=== PATIENT | female | born 1980 | race African-American/Black ===

== ENCOUNTER 2023-07-21 22:35 | Emergency (ER) | payer SELFPAY ==
[~2023-07-21] VITALS: Ht 157.5 cm; Wt 75.0 kg
[2023-07-21 22:39] VITALS: TEMP 98.6; O2SAT 100
[2023-07-22 02:30] VITALS: BP 142/94; PULSE 86; RESP 16
[2023-07-22] MEDS ORDERED: HYDROCODONE/ACETAMINOPHEN 5/325MG TABLET PO NR (02:30)
[2023-07-22 03:48] LABS: BASOPHILS % 0.1 % (0.0-2.0); EOSINOPHILS % 0.9 % (0.0-5.0); HEMATOCRIT. 33.8 % (36.0-48.0); HEMOGLOBIN. 11.7 g/dL (12.0-16.0); LYMPHOCYTES % 9.8 % (20.0-50.0); MEAN CORPUSCULAR HEMOGLOBIN 32.1 pg (28.0-32.0); MEAN CORPUSCULAR HGB CONC 34.5 g/dL (31.0-37.0); MEAN CORPUSCULAR VOLUME 93.1 fL (81.0-99.0); MEAN PLATELET VOLUME 9.5 fl (7.4-10.4); NEUTROPHILS % 81.2 % (40.0-76.0); PLATELET 234 x1000/uL (130-400); RED BLOOD CELL COUNT 3.63 mill/uL (4.2-5.4); RED CELL DISTRIBUTION WIDTH 12.4 % (11.6-14.6); WHITE BLOOD COUNT 8.5 x1000/uL (4.5-11.0)
[2023-07-22 04:11] LABS: ALANINE AMINOTRANSFERASE 86 IU/L (10-49); ALBUMIN 3.6 g/dL (3.2-4.8); ASPARTATE AMINOTRANSFERASE 92 IU/L (<34); BILIRUBIN TOTAL 0.6 mg/dL (0.1-1.0); CALCIUM 8.4 mg/dL (8.7-10.4); CARBON DIOXIDE 25 mEq/L (21-32); CHLORIDE 110 mEq/L (98-107); CREATININE 0.9 mg/dL (0.6-1.0); GLUCOSE 98 mg/dL (70-105); POTASSIUM 3.4 mEq/L (3.5-5.1); PROTEIN TOTAL 6.3 g/dL (6.0-8.3); SODIUM 142 mEq/L (136-145); TROPONIN I HIGH SENSITIVITY 4 ng/L (3.0-34); UREA NITROGEN BLOOD 12 mg/dL (9-23)
[2023-07-22] MEDS ORDERED: LIDO700A15 TP (04:56)
[2023-07-22] MEDS ORDERED: GABA300C MT (04:56)
== END 2023-07-22 05:23 | disposition home or self-care (01) ==
LOC: ER 22:35
DX: M54.40 Lumbago with sciatica, unspecified side (principal); I10 Essential (primary) hypertension; Z88.0 Allergy status to penicillin
CPT/HCPCS: 36415; 71045; 72100; 80053; 83880; 84484; 85025; 93005; 99285

== ENCOUNTER 2024-07-10 17:38 | Emergency (ER) | payer BC, MEDICAID ==
[~2024-07-10] VITALS: Ht 157.5 cm; Wt 96.0 kg
[~2024-07-10 17:38] MED LIST: GABA300C MT; LIDO700A15 TP
[2024-07-10 17:46] VITALS: TEMP 98.1; O2SAT 100
[2024-07-10] MEDS: METHOCARBAMOL 500MG TABLET PO ONE (18:43)
[2024-07-10] MEDS: HYDROCODONE/ACETAMINOPHEN 5/325MG TABLET PO ONE (18:44)
[2024-07-10] MEDS ORDERED: METH-653 MT (19:12)
[2024-07-10] MEDS ORDERED: ACET-2708 MT (19:12)
[2024-07-10] MEDS ORDERED: LIDO700A15 TP (19:12)
[2024-07-10 20:20] VITALS: BP 148/79; PULSE 79; RESP 20; O2SAT 97
== END 2024-07-10 20:21 | disposition home or self-care (01) ==
LOC: ER 17:38
DX: M54.42 Lumbago with sciatica, left side (principal); I10 Essential (primary) hypertension; Z88.0 Allergy status to penicillin; Z88.6 Allergy status to analgesic agent
CPT/HCPCS: 72100; 99283